=== PATIENT | female | born 1970 | race Caucasian/White ===

== ENCOUNTER 2021-07-09 16:04 | Emergency (ER) | payer MEDICARE, OTHER ==
[~2021-07-09] VITALS: Ht 157.5 cm; Wt 72.6 kg
[2021-07-09 17:32] LABS: HEMOGLOBIN 9.9 gm/dl (12.3-15.3); RED BLOOD COUNT 3.61 M/UL (4.00-5.10); WHITE BLOOD COUNT 13.5 K/UL (4.5-11.0)
[2021-07-09 17:55] LABS: BUN/CREATININE RATIO 20 (0-10)
[2021-07-09 20:25] LABS: BORDETELLA PARAPERTUSSIS Not Detected (Not Detectd); BORDETELLA PERTUSSIS Not Detected (Not Detectd); CHLAMYDIA PNEUMONIAE Not Detected (Not Detectd); CORONAVIRUS HKU1 Not Detected (Not Detectd); CORONAVIRUS NL63 Not Detected (Not Detectd); CORONAVIRUS OC43 Not Detected (Not Detectd); CORONOAVIRUS 229E Not Detected (Not Detectd); HUMAN METAPNEUMOVIRUS Not Detected (Not Detectd); HUMAN RHINOVIRUS/ENTEROVIRUS Not Detected (Not Detectd); INFLUENZA A Not Detected (Not Detectd); INFLUENZA B Not Detected (Not Detectd); MYCOPLASMA PNEUMONIAE Not Detected (Not Detectd); PARAINFLUENZA VIRUS 1 Not Detected (Not Detectd); PARAINFLUENZA VIRUS 2 Not Detected (Not Detectd); PARAINFLUENZA VIRUS 3 Not Detected (Not Detectd); PARAINFLUENZA VIRUS 4 Not Detected (Not Detectd); RESPIRATORY SYNCYTIAL VIRUS Not Detected (Not Detectd)
[2021-07-09 21:22] LABS: SARS-CoV-2 NOT DETECTED (Not Detectd)
[2021-07-10 05:51] LABS: HEMOGLOBIN 8.3 gm/dl (12.3-15.3); WHITE BLOOD COUNT 11.8 K/UL (4.5-11.0)
[2021-07-10 06:08] LABS: BUN/CREATININE RATIO 22 (0-10)
[2021-07-10] MEDS ORDERED: ZOFRAN 4 MG TAB4 MG PO (09:36)
[2021-07-10] MEDS ORDERED: JARDIANCE10 MG PO (09:36)
[2021-07-10] MEDS ORDERED: BUPRENORPHIN-N1 EACH PO (09:37)
[2021-07-10] MEDS ORDERED: LEXAPRO5 MG PO (09:37)
[2021-07-10 17:09] LABS: RED BLOOD COUNT 3.24 M/UL (4.00-5.10); WHITE BLOOD COUNT 12.9 K/UL (4.5-11.0)
== END 2021-07-11 00:40 | disposition short-term general hospital (02) ==
LOC: ER1 16:04 → CDU 20:09 → ER1 07-11 00:40
PROVIDERS: Emergency Medicine; Internal Medicine; Physician Assistant Medical
DX: R19.5 Other fecal abnormalities (principal); E11.9 Type 2 diabetes mellitus without complications; Z79.4 Long term (current) use of insulin; F17.200 Nicotine dependence, unspecified, uncomplicated; Z20.822 Contact with and (suspected) exposure to COVID-19
CPT/HCPCS: 36415; 80048; 80053; 81001; 82272; 82962; 83605; 83690; 85018; 85025; 86850; 86900; 86901; 86920; 87040; 87449; 87633; 93005; 96374; 96375; 96376; 99285; C9113; J0696; J1170; J2270; J2405; J2543; J2550; Q9967